=== PATIENT | male | born 1960 | race Caucasian/White ===

== ENCOUNTER 2021-03-03 15:44 | Emergency (ER) | payer BC ==
[2021-03-03] MEDS ORDERED: KETOROLAC 30 MG/ML INJ ONE (17:24)
[2021-03-03] MEDS ORDERED: ONDANSETRON 4 MG/2 ML VIAL ONE (17:34)
[2021-03-03] MEDS ORDERED: NA CHLORIDE 0.9% 1,000 ML ONE (17:34)
[2021-03-03] MEDS ORDERED: NA CHLORIDE 0.9% 500 ML ONE (17:34)
[2021-03-03 18:24] LABS: Absolute Lymphocytes (CBC) 1.5 K/uL (0.7-4.9); Basophils % 0.4 % (0-1.3); Hematocrit 51.3 % (39.6-49.0); Lymphocytes % 9.8 % (15.3-44.8); MPV 8.1 fL (7.6-11.3); RBC Red Blood Cell Count 6.06 M/uL (4.33-5.43)
--- NOTE | 2021-03-03 18:28 | RAD REPORT ---
EXAM DESCRIPTION: CT - CTHCSPWOC - 03/03/2021 5:58 pm CLINICAL HISTORY: Trauma, head and neck injury. headache, neck pain COMPARISON: No comparisons TECHNIQUE: Axial 5 mm thick images of the head were obtained. Axial 2 mm thick images of the cervical spine were obtained with sagittal and coronal reconstruction images generated and reviewed. All CT scans are performed using dose optimization technique as appropriate and may include automated exposure control or mA/KV adjustment according to patient size. FINDINGS: CT HEAD WITHOUT CONTRAST: No acute hemorrhage, hydrocephalus or extra-axial collection is identified.No areas of brain edema or midline shift. The paranasal sinuses and mastoids are clear.The calvarium is intact. CT CERVICAL SPINE WITHOUT CONTRAST: No fracture or subluxation.Mild lower cervical degenerative spondylosis is present.No prevertebral so ft tissues swelling is identified. IMPRESSION: No acute intracranial or cervical spine findings.
[2021-03-03 18:32] LABS: Protime INR 1.05
--- NOTE | 2021-03-03 18:41 | RAD REPORT ---
EXAM DESCRIPTION: RAD - Chest Single View - 03/03/2021 6:17 pm CLINICAL HISTORY: COUGH Chest pain. COMPARISON: CHEST PA AND LAT 2 VIEW dated 02/02/2008; CHEST PA AND LAT 2 VIEW dated 08/24/2005 FINDINGS: Portable technique limits examination quality. Interstitial prominence is present bilaterally which may represent mild interstitial pulmonary edema or viral infection. The heart is upper limit of normal in size. No displaced fractures.
[2021-03-03 18:44] LABS: ALT/SGPT 83 U/L (12-78); AST/SGOT 36 U/L (15-37); Alkaline Phosphatase 87 U/L (45-117); BUN Blood Urea Nitrogen 15 mg/dL (7-18); Bicarbonate 30 mmol/L (21-32); Bilirubin Direct 0.1 mg/dL (0-0.2); Bilirubin Total 0.5 mg/dL (0.2-1.0); Glucose Level 113 mg/dL (74-106); Magnesium 2.1 mg/dL (1.8-2.4); NT PRO-BNP 10 pg/mL (<125); Protein, Total 8.3 g/dL (6.4-8.2); Sodium Level 139 mmol/L (136-145); Troponin (Emerg Dept Use Only) < 0.02 ng/mL (0.0-0.045)
--- NOTE | 2021-03-03 20:21 | RAD REPORT ---
EXAM DESCRIPTION: MRI - C Spine Wo Cont- 03/03/2021 8:10 pm CLINICAL HISTORY: pain Neck pain, radiculopathy COMPARISON: <Comparisons> FINDINGS: Cervical vertebral bodies are normal in height and alignment. No suspicious marrow edema or marrow replacing process. No fracture or traumatic subluxation. The craniocervical junction is normal. C2-3 level: Left facet joint demonstrates hypertrophy mildly narrowing the left exit foramen. C3-4 level: Small posterior osteophyte/ disc complex is present attenuating the anterior subarachnoid space and contacting the anterior cord. Left-sided uncovertebral spurring mildly narrows the left ex it foramen. C4-5 level: Moderate posterior osteophyte/ disc complex is present attenuating the anterior subarachn oid space and contacting and deforming the anterior cord. Uncovertebral spurring is present bilateral ly mildly narrowing both exit foramina. C5-6 level: Moderate posterior osteophyte/ disc complex is present attenuating the anterior subarachn oid space and contacting and flattening the cord anteriorly. Right-sided uncovertebral spurring is no artemio narrowing the right exit foramen moderately. C6-7 level: Small posterior osteophyte/ disc complex is present attenuating the anterior subarachnoid space contacting the anterior cord. Mild uncovertebral spurring mildly narrows the left exit foramen . C7-T1 level: No significant findings. Cervical cord is normal in size and signal. IMPRESSION: Oebw-[id number] multilevel mid and lower cervical degenerative changes are present as d etailed. Findings appear most severe at C5-6.
[2021-03-03] MEDS ORDERED: dexAMETHasone 10 MG/ML VIAL ONE (20:59)
--- NOTE | 2021-03-03 21:28 | ER ---
Nurse's Notes [facility] Name: Radames Hahn IV Age: 60 yrs Sex: Male : 1960 Arrival Date: 03/03/2021 Time: 15:48 Bed 18 Private MD: Michael Booth Diagnosis: Spondylolysis, cervical region;Acute post-traumatic headache;Elevated white blood cell count;Strain of muscle, fascia and tendon at neck level, initial encounter Presentation: 03/03 16:11 Chief complaint: Patient states: I went to see Dr. Booth, he sent me here because he ld1 said I could possibly have meningitis or an injured disc. I have been having neck stiffness \T\ neck pain. Coronavirus screen: At this time, the client does not indicate any symptoms associated with coronavirus-19. Ebola Screen: No symptoms or risks identified at this time. Initial Sepsis Screen: Does the patient meet any 2 criteria? No. Patient's initial sepsis screen is negative. Does the patient have a suspected source of infection? No. Patient's initial sepsis screen is negative. Risk Assessment: Do you want to hurt yourself or someone else? Patient reports no desire to harm self or others. Onset of symptoms was March 03, 2021. 16:11 Method Of Arrival: Ambulatory ld1 16:11 Acuity: JOYCELYN 3 ld1 Triage Assessment: 16:12 General: Appears in no apparent distress. uncomfortable, Behavior is calm, cooperative, ld1 appropriate for age. Pain: Complains of pain in base of the skull Pain does not radiate. Pain currently is 5 out of 10 on a pain scale. at worst was 10 out of 10 on a pain scale. Quality of pain is described as pressure, shooting, throbbing, Pain began Tuesday Is continuous. Neuro: Level of Consciousness is awake, alert, obeys commands, Oriented to person, place, time, situation. Cardiovascular: Capillary refill < 3 seconds Patient's skin is warm and dry. Respiratory: Airway is patent Respiratory effort is even, unlabored, Respiratory pattern is regular, symmetrical. GI: Abdomen is flat, non-distended. Musculoskeletal: Reports pain in base of the skull. Historical: - Allergies: 16:12 No Known Allergies; ld1 - Home Meds: 16:12 Lisinopril Oral [Active]; ld1 - PMHx: 16:12 Hypertensive disorder; ld1 - PSHx: 16:12 Cholecystectomy; ld1 - Immunization history:: Adult Immunizations not up to date, Client reports having NOT received the Covid vaccine. - Social history:: Smoking status: Patient/guardian denies using tobacco, but has a distant history of tobacco abuse, Patient/guardian denies using alcohol. - Family history:: not pertinent. Screenin:10 Abuse screen: Denies threats or abuse. Nutritional screening: No deficits noted. sl2 Tuberculosis screening: No symptoms or risk factors identified. Never had TB. Possible symptoms: None Risk factors: None. Fall Risk None identified. No fall in past 12 months (0 pts). No secondary diagnosis (0 pts). IV access (20 points). Ambulatory Aid- None/Bed Rest/Nurse Assist (0 pts). Gait- Normal/Bed Rest/Wheelchair (0 pts) Mental Status- Oriented to own ability (0 pts). Total Darden Fall Scale indicates No Risk (0-24 pts). Assessment: 17:11 General: Appears uncomfortable, well groomed, well developed, Behavior is calm, sl2 cooperative. 17:11 Pain: Complains of pain in scalp and base of the skull Pain radiates to scalp and base sl2 of the skull Pain currently is 5 out of 10 on a pain scale. Quality of pain is described as burning, aching. Neuro: Reports neck and back pain . Cardiovascular: No deficits noted. Respiratory: No deficits noted. Airway is patent Trachea midline Breath sounds are clear bilaterally. GI: No deficits noted. No signs and/or symptoms were reported involving the gastrointestinal system. : No deficits noted. No signs and/or symptoms were reported regarding the genitourinary system. EENT: No deficits noted. No signs and/or symptoms were reported regarding the EENT system. Derm: No deficits noted. No signs and/or symptoms reported regarding the dermatologic system. Parent/caregiver reports the patient having. Musculoskeletal: Reports pain in scalp and base of the skull, neck Denies. 18:10 Neuro: No deficits noted. sl2 19:30 Reassessment: Patient appears in no apparent distress at this time. Reports relief of cc4 cervical pain; denies nausea; SR with no ectopy noted of CM; IV NS patent/infusing right AC \T\ 125 ml/hr/pump with no redness/edema noted of site; skin W/D; reports feeling better; senior technical manager here \T\ taking to CT via stretcher; NAD. Pain: Denies pain. Neuro: Level of Consciousness is awake, alert, obeys commands, Oriented to person, place, time, situation. Cardiovascular: Denies chest pain, shortness of breath. Respiratory: No deficits noted. Airway is patent Respiratory effort is even, unlabored. Musculoskeletal: No deficits noted. Capillary refill < 3 seconds, Range of motion: intact in all extremities. 20:11 Reassessment: Patient appears in no apparent distress at this time. Returned from CT cc4 via stretcher; voices no complaints. 21:00 Reassessment: Patient appears in no apparent distress at this time. Decadron 10 mg cc4 given slow IVP with no adverse reaction, cliff. well; voices no complaints. Patient states feeling better. Vital Signs: 16:11 BP 178 / 101; Pulse 67; Resp 18; Temp 98.1(O); Pulse Ox 97% on R/A; Weight 96.62 kg; ld1 Height 5 ft. 8 in. (172.72 cm); Pain 5/10; 18:12 BP 152 / 97; Pulse 68; Resp 18; Temp 98.2(O); Pulse Ox 97% on R/A; sl2 19:30 BP 127 / 106; Pulse 65; Resp 20; Temp 98.2(O); Pulse Ox 96% on R/A; cc4 21:00 BP 145 / 83; Pulse 68; Resp 20; Pulse Ox 98% on R/A; cc4 21:45 BP 115 / 64; Pulse 75; Resp 20; Temp 98.2; Pulse Ox 99% on R/A; cc4 16:11 Body Mass Index 32.39 (96.62 kg, 172.72 cm) ld1 ED Course: 15:48 Patient arrived in ED. am2 15:49 Michael Booth is Private Physician. am2 16:12 Triage completed. ld1 16:12 Arm band placed on right wrist. ld1 17:22 Alejandra Schulte, MARIS is Primary Nurse. sl2 17:29 Edmund Ceron MD is Attending Physician. emmanuel 17:58 CT Head C Spine In Process Unspecified. EDMS 18:07 Initial lab(s) drawn, by me, sent to lab. Inserted saline lock: 20 gauge in right kj1 antecubital area, using aseptic technique. Blood collected. 18:10 Patient has correct armband on for positive identification. Bed in low position. Call sl2 light in reach. Side rails up X 1. Door closed. Noise minimized. Warm blanket given. 18:10 No provider procedures requiring assistance completed. IV is patent, is intact, with sl2 fluids infusing freely, with good blood return. 18:17 XRAY Chest (1 view) In Process Unspecified. EDMS 20:03 C Spine Wo Cont In Process Unspecified. EDMS 21:28 Michael Booth is Referral Physician. kb 21:28 Mau Fry MD is Referral Physician. kb 21:45 IV discontinued, intact, bleeding controlled, No redness/swelling at site. Pressure cc4 dressing applied. Administered Medications: 17:30 Drug: Ketorolac 30 mg Route: IM; Site: right deltoid; sl2 18:17 Follow up: Response: No adverse reaction; Pain is decreased sl2 18:00 Drug: NS 0.9% 500 ml Route: IV; Rate: bolus; Site: right antecubital; sl2 19:10 Follow up: Response: No adverse reaction; IV Status: Completed infusion; IV Intake: sl2 500ml 21:45 Follow up: IV Status: Completed infusion; IV Intake: 1000ml cc4 19:10 Drug: NS 0.9% 1000 ml Route: IV; Rate: 125 ml/hr; Site: right antecubital; sl2 21:45 Follow up: IV Status: Order to discontinue infusion; IV Intake: 350ml cc4 21:00 Drug: Decadron - Dexamethasone 10 mg Route: IVP; Site: right antecubital; cc4 21:45 Follow up: Response: No adverse reaction; Pain is decreased cc4 21:45 Follow up: Response: No adverse reaction cc4 21:06 Not Given (Patient Refused): Zofran (Ondansetron) 4 mg IVP once; over 2 minutes cc4 Intake: 19:10 IV: 500ml; Total: 500ml. sl2 21:45 IV: 350ml; Total: 850ml. cc4 21:45 IV: 1000ml; Total: 1850ml. cc4 Outcome: :28 Discharge ordered by MD. hope 21:45 Discharged to home ambulatory. cc4 21:45 Condition: improved 21:45 Discharge instructions given to patient, Instructed on discharge instructions, follow up and referral plans. medication usage, Demonstrated understanding of instructions, follow-up care, medications, Prescriptions given X 3. 22:21 Patient left the ED. cc4 Signatures: Dispatcher [employer] EDMT Pham John, EDITOR NEWSPAPER-C EDITOR NEWSPAPER-Edmund Jules MD MD cha Moreno, Amanda am2 Marcia John kj1 Jesenia Parekh, RN RN ld1 Yesenia Sims, RN RN cc4 Alejandra Schulte RN RN sl2
--- NOTE | 2021-03-03 21:29 | EDPHYS ---
Physician Documentation [facility] Name: Radames Hahn IV Age: 60 yrs Sex: Male : 1960 Arrival Date: 03/03/2021 Time: 15:48 Bed 18 Private MD: Michael Booth ED Physician Edmund Ceron HPI: 03/03 19:28 This 60 yrs old Male presents to ER via Ambulatory with complaints of Neck emmanuel Pain, >24Hrs Old, Sinus Pain, r/o meningitis. 19:28 The patient or guardian complains of decreased range of motion, pain, that is acute. emmanuel The symptoms are located at the cervical spine. Onset: The symptoms/episode began/occurred 3 day(s) ago. Context: The problem was sustained. Associated signs and symptoms: Pertinent positives: headache. The pain does not radiate. Modifying factors: The symptoms are alleviated by remaining still, the symptoms are aggravated by movement, left to right, minimal pain with flexion and ext. Severity of symptoms: At their worst the symptoms were moderate, in the emergency department the symptoms have improved, moderately. The patient has not experienced similar symptoms in the past. Historical: - Allergies: 16:12 No Known Allergies; ld1 - Home Meds: 16:12 Lisinopril Oral [Active]; ld1 - PMHx: 16:12 Hypertensive disorder; ld1 - PSHx: 16:12 Cholecystectomy; ld1 - Immunization history:: Adult Immunizations not up to date, Client reports having NOT received the Covid vaccine. - Social history:: Smoking status: Patient/guardian denies using tobacco, but has a distant history of tobacco abuse, Patient/guardian denies using alcohol. - Family history:: not pertinent. ROS: 19:28 Constitutional: Negative for fever, chills, and weight loss, Eyes: Negative for injury, emmanuel pain, redness, and discharge, ENT: Negative for injury, pain, and discharge, Cardiovascular: Negative for chest pain, palpitations, and edema, Respiratory: Negative for shortness of breath, cough, wheezing, and pleuritic chest pain, Abdomen/GI: Negative for abdominal pain, nausea, vomiting, diarrhea, and constipation, Back: Negative for injury and pain, : Negative for injury, bleeding, discharge, and swelling, MS/Extremity: Negative for injury and deformity, Skin: Negative for injury, rash, and discoloration, Psych: Negative for depression, anxiety, suicide ideation, homicidal ideation, and hallucinations, Allergy/Immunology: Negative for hives, rash, and allergies, Endocrine: Negative for neck swelling, polydipsia, polyuria, polyphagia, and marked weight changes, Hematologic/Lymphatic: Negative for swollen nodes, abnormal bleeding, and unusual bruising. 19:28 Neck: Positive for pain with movement, pain at rest. 19:28 Neuro: Positive for headache, of the occipital area and base of the skull. Exam: 19:28 Constitutional: This is a well developed, well nourished patient who is awake, alert, emmanuel and in no acute distress. Head/Face: Normocephalic, atraumatic. Eyes: Pupils equal round and reactive to light, extra-ocular motions intact. Lids and lashes normal. Conjunctiva and sclera are non-icteric and not injected. Cornea within normal limits. Periorbital areas with no swelling, redness, or edema. ENT: Nares patent. No nasal discharge, no septal abnormalities noted. Tympanic membranes are normal and external auditory canals are clear. Oropharynx with no redness, swelling, or masses, exudates, or evidence of obstruction, uvula midline. Mucous membranes moist. Chest/axilla: Normal chest wall appearance and motion. Nontender with no deformity. No lesions are appreciated. Cardiovascular: Regular rate and rhythm with a normal S1 and S2. No gallops, murmurs, or rubs. Normal PMI, no JVD. No pulse deficits. Respiratory: Lungs have equal breath sounds bilaterally, clear to auscultation and percussion. No rales, rhonchi or wheezes noted. No increased work of breathing, no retractions or nasal flaring. Abdomen/GI: Soft, non-tender, with normal bowel sounds. No distension or tympany. No guarding or rebound. No evidence of tenderness throughout. Back: No spinal tenderness. No costovertebral tenderness. Full range of motion. Male : Normal genitalia with no discharge or lesions. Skin: Warm, dry with normal turgor. Normal color with no rashes, no lesions, and no evidence of cellulitis. MS/ Extremity: Pulses equal, no cyanosis. Neurovascular intact. Full, normal range of motion. Neuro: Awake and alert, GCS 15, oriented to person, place, time, and situation. Cranial nerves II-XII grossly intact. Motor strength 5/5 in all extremities. Sensory grossly intact. Cerebellar exam normal. Normal gait. Psych: Awake, alert, with orientation to person, place and time. Behavior, mood, and affect are within normal limits. 19:28 Neck: External neck: is normal, no acute changes, C-spine: appears grossly normal, no acute changes, ROM/movement: limited range of motion, that is moderate, when rotating to the right, when rotating to the left, minimal pain with flex/ext, no meningismus. Meningeal signs: are not present, Kernig's sign is negative, Brudzinski's sign is negative, nuchal rigidity, is not appreciated, Lymph nodes: no appreciated lymphadenopathy. Vital Signs: 16:11 BP 178 / 101; Pulse 67; Resp 18; Temp 98.1(O); Pulse Ox 97% on R/A; Weight 96.62 kg; ld1 Height 5 ft. 8 in. (172.72 cm); Pain 5/10; 18:12 BP 152 / 97; Pulse 68; Resp 18; Temp 98.2(O); Pulse Ox 97% on R/A; sl2 19:30 BP 127 / 106; Pulse 65; Resp 20; Temp 98.2(O); Pulse Ox 96% on R/A; cc4 21:00 BP 145 / 83; Pulse 68; Resp 20; Pulse Ox 98% on R/A; cc4 21:45 BP 115 / 64; Pulse 75; Resp 20; Temp 98.2; Pulse Ox 99% on R/A; cc4 16:11 Body Mass Index 32.39 (96.62 kg, 172.72 cm) ld1 MDM: 17:29 Patient medically screened. emmanuel 19:38 Differential diagnosis: arthritis, bacterial meningitis, C-Spine Fracture Cervical Disc emmanuel Herniation Cervical Facet Syndrome Cervical Spondylosis cervical strain, Degenerative Disc Disease fracture, Neck Contusion Spondylosis torticollis, Unstable Vertebral Fracture. Data reviewed: vital signs, nurses notes, lab test result(s), EKG, radiologic studies, CT scan, MRI, plain films. Data interpreted: personnel monitor: rate is 68 beats/min, rhythm is regular. Test interpretation: by ED physician or midlevel provider: ECG, plain radiologic studies. Counseling: I had a detailed discussion with the patient and/or guardian regarding: the historical points, exam findings, and any diagnostic results supporting the discharge/admit diagnosis, lab results, radiology results, the need for outpatient follow up, for definitive care, a family practitioner, a neurologist. 03/03 17:30 Order name: Basic Metabolic Panel; Complete Time: 19:15 [facility] 03/03 17:30 Order name: CBC with Diff; Complete Time: 19:15 [facility] 03/03 17:30 Order name: LFT's; Complete Time: 19:15 [facility] 03/03 17:30 Order name: Magnesium; Complete Time: 19:15 [facility] 03/03 17:30 Order name: NT PRO-BNP; Complete Time: 19:15 [facility] 03/03 17:30 Order name: PT-INR; Complete Time: 19:15 [facility] 03/03 17:21 Order name: CT Head C Spine; Complete Time: 19:[address] [facility] 03/03 17:30 Order name: Troponin (emerg Dept Use Only); Complete Time: 19:15 [facility] 03/03 17:30 Order name: XRAY Chest (1 view); Complete Time: 19:15 [facility] 03/03 17:31 Order name: SARS-COV-2 RT PCR (Document "Date of Onset" if Symptomatic); Complete Time: [facility] 19:03/03 17:31 Order name: Flu; Complete Time: 19:15 [facility] 03/03 19:35 Order name: C Spine Wo Cont; Complete Time: 21:28 [facility] 03/03 17:30 Order name: EKG; Complete Time: 17:31 [facility] 03/03 17:30 Order name: Cardiac monitoring; Complete Time: 21:06 [facility] 03/03 17:30 Order name: EKG - Nurse/Tech; Complete Time: 21:26 [facility] 03/03 17:30 Order name: IV Saline Lock; Complete Time: 21:07 [facility] 03/03 17:30 Order name: Labs collected and sent; Complete Time: 21:07 [facility] 03/03 17:30 Order name: O2 Sat Monitoring; Complete Time: 21:07 [facility] Administered Medications: 17:30 Drug: Ketorolac 30 mg Route: IM; Site: right deltoid; sl2 18:17 Follow up: Response: No adverse reaction; Pain is decreased sl2 18:00 Drug: NS 0.9% 500 ml Route: IV; Rate: bolus; Site: right antecubital; sl2 19:10 Follow up: Response: No adverse reaction; IV Status: Completed infusion; IV Intake: sl2 500ml 21:45 Follow up: IV Status: Completed infusion; IV Intake: 1000ml cc4 19:10 Drug: NS 0.9% 1000 ml Route: IV; Rate: 125 ml/hr; Site: right antecubital; sl2 21:45 Follow up: IV Status: Order to discontinue infusion; IV Intake: 350ml cc4 21:00 Drug: Decadron - Dexamethasone 10 mg Route: IVP; Site: right antecubital; cc4 21:45 Follow up: Response: No adverse reaction; Pain is decreased cc4 21:45 Follow up: Response: No adverse reaction cc4 21:06 Not Given (Patient Refused): Zofran (Ondansetron) 4 mg IVP once; over 2 minutes cc4 Disposition Summary: 03/03/21 21:28 Discharge Ordered Location: Home kb Problem: new kb Symptoms: have improved kb Condition: Stable kb Diagnosis - Spondylolysis, cervical region kb - Acute post-traumatic headache kb - Elevated white blood cell count kb - Strain of muscle, fascia and tendon at neck level, initial encounter kb Followup: emmanuel - With: - When: Tomorrow - Reason: Recheck today's complaints, Continuance of care, Re-evaluation by your physician Followup: emmanuel - With: - When: 1 - 2 days - Reason: Recheck today's complaints, Re-evaluation by your physician Discharge Instructions: - Discharge Summary Sheet emmanuel - Cervical Radiculopathy emmanuel - Neck Contusion emmanuel - Cervical Sprain emmanuel - Cervical Sprain, [id number] emmanuel - Tension Headache, Adult, [id number] emmanuel - Neck Contusion, [id number] emmanuel - Cervical Radiculopathy, [id number] emmanuel Forms: - Medication Reconciliation Form kb - Thank You Letter kb - Antibiotic Education kb - Prescription Opioid Use kb Prescriptions: - dexamethasone 2 mg Oral tablet - take 1 tablet by ORAL route 2 times per day; 10 tablet; Refills: 0, Product emmanuel Selection Permitted - Naprosyn 500 mg Oral Tablet - take 1 tablet by ORAL route 2 times per day take with food; 20 tablet; Refills: emmanuel 0, Product Selection Permitted - Cyclobenzaprine 5 mg Oral Tablet - take 1 tablet by ORAL route 3 times per day As needed; 15 tablet; Refills: 0, emmanuel Product Selection Permitted Signatures: Dispatcher [employer] Pham Connors, TRACIE BENITEZ-Edmund Jules MD MD cha Mickail, Joel, PA PA jmm Dibbern, Lauren, RN RN ld1 Yesenia Sims RN RN cc4 Alejandra Schulte RN RN sl2
[2021-03-03 22:31] VITALS: TEMP 98.2
[2021-03-03 22:35] VITALS: BP 115/64; O2SAT 99
--- NOTE | 2021-03-04 13:12 | EKG ---
Test Date: 2021-03-03 Test Time: 21:21:50 Professor Of Psychology: BETTINA MEASUREMENT RESULTS: Intervals: Rate: 63 AL: 160 QRSD: 82 QT: 402 QTc: 411 [place]: P: 53 AL: 160 QRS: 9 T: 19 INTERPRETIVE STATEMENTS: Normal sinus rhythm Normal ECG Compared to ECG 11/16/2008 08:05:46 No significant changes Electronically Signed On 03-04-21 13:10:24 CDT by Noel Singleton
== END 2021-03-03 22:21 | disposition home or self-care (01) ==
LOC: ER 15:44
DX: S16.1XXA Strain of muscle, fascia and tendon at neck level, initial encounter (principal); M47.892 Other spondylosis, cervical region; G44.319 Acute post-traumatic headache, not intractable; D72.829 Elevated white blood cell count, unspecified; I10 Essential (primary) hypertension; Z20.822 Contact with and (suspected) exposure to COVID-19
CPT/HCPCS: 96361; 93005; 85025; 80048; 36415; 83735; 85610; 80076; 84484; 83880; 87804 ×2; 70450; 72125; 71045; 72141; 96372; 96374; 99284; U0003; J1100; J7040; J7030; J2405